=== PATIENT | male | born 1955 | race Two or more races ===

== ENCOUNTER 2020-04-15 20:57 | Emergency (ER) | payer SELFPAY ==
--- NOTE | 2020-04-15 21:25 | ED Physician Documentation ---
PD HPI Fall - Stated complaint Stated Complaint: FALL - History obtained from History obtained from: Patient - History of Present Illness Mechanism of injury: Lost balance Fall distance: Less than 5ft Where injury occurred: Home Timing - onset: Enter time (02:00) Injury(ies) location: Head Pain level now: 0 Quality of pain: Pain (only with palpation) Associated symptoms: No: LOC, AMS Worsens with: Palpation Contributing factors: No: Anticoagulated Recently seen: Not recently seen - Additional information Additional information: fell off of a ladder, only approximately 2 feet off ground, struck head and sustained scalp laceration.Denies LOC. c/o pain localized to the site of injury. He did not come to ED until tonight due to unable to procure ride until now. UTD on tetanus Review of Systems GI: denies: Vomiting Skin: reports: Laceration (s) Musculoskeletal: reports: Reviewed and negative Neurologic: reports: Head injury. denies: Generalized weakness, Focal weakness, Numbness, Headache, LOC PD PAST MEDICAL HISTORY - Past Medical History Past Medical History: No - Present Medications Home Medications: Ambulatory Orders Medication Instructions Recorded Confirmed Cephalexin [Keflex] 500 mg PO Q6H #20 capsule 04/15/20 - Allergies Allergies/Adverse Reactions: Allergies Allergy/AdvReac Type Severity Reaction Status Date / Time No Known Drug Allergies Allergy Verified 04/15/20 21:03 PD ED PE NORMAL - Vitals Vital signs reviewed: Yes - General General: Alert and oriented X 3, No acute distress, Well developed/nourished - HEENT HEENT: PERRL, EOMI PD ED PE EXPANDED - HEENT HEENT Visual: 1 - laceration (5 cm length beveled) Results - Vitals Vitals: Vital Signs - 24 hr 04/15/20 04/15/20 21:03 22:50 Temperature 36.6 C 36.3 C L Heart Rate 90 82 Respiratory 16 16 Rate Blood Pressure 150/70 H 138/69 H O2 Saturation 98 99 Oxygen O2 Source Room air - Rads (name of study) CT head Radiology: Prelim report reviewed, See rad report Procedures - Laceration (location) Scalp Length in cm: 5 Wound type: Linear Neurovascular status: Sensory intact, Motor intact, Vascular intact Anesthesia: Lidocaine 1%, With bicarb Wound Preparation: Chlorhexadine, Irrigated copiously NS, Wound explored, To the base. No: FB identified Skin layer closure: [place] Other: Patient tolerated well, No complications, Neurovascular intact, Tetanus UTD Complexity: Simple PD MEDICAL DECISION MAKING - ED course Complexity details: reviewed results, re-evaluated patient, considered differential, d/w patient ED course: communication with patient performed via slitter service and setter tablet. Departure - Departure Disposition: 01 Home, Self Care Clinical Impression: Laceration Condition: Good Instructions: ED Laceration Scalp Stitch Or Stap Prescriptions: Cephalexin [Keflex] 500 mg PO Q6H #20 capsule Print Language: Latvian Comments: Follow up with your doctor in 7-8 days for removal of the carmella. If you do not have a primary care provider (doctor), you can go to an urgent care-center, a walk-in clinic, or else return to the emergency department. You have been prescribed an antibiotic to help prevent infection Discharge Date/Time: 04/15/20 22:50
[2020-04-15] MEDS ORDERED: BUFFERED LIDOCAINE 10 ML SYRINGE IU STA (22:09)
[2020-04-15] MEDS ORDERED: cephALEXin 250 MG CAPSULE PO STA (22:35)
[2020-04-15] MEDS ORDERED: BACITRACIN ZINC OINT 1 PACKET TOP STA (22:39)
[2020-04-15 22:51] VITALS: BP 138/69
--- NOTE | 2020-04-16 08:18 | CT Report ---
PROCEDURE: HEAD WO INDICATIONS: Head injury TECHNIQUE: Noncontrast 4.5 mm thick angled axial sections acquired from the foramen magnum to the vertex. For r adiation dose reduction, the following was used: automated exposure control, adjustment of mA and/or kV according to patient size. COMPARISON: None. FINDINGS: Image quality: Excellent. CSF spaces: Basal cisterns are patent. No extra-axial fluid collections. Ventricles are normal in size and shape. Brain: No acute intracranial hemorrhage. Global cerebral volume loss with advanced chronic microvascu lar ischemic changes. Focally decreased parenchymal attenuation and decreased tavares-white matter diffe rentiation in the left parietotemporal region, nonspecific. Skull and face: Calvarium and visualized facial bones are intact, without suspicious lesions. Sinuses: Visualized sinuses and mastoids are clear. IMPRESSION: No acute intracranial hemorrhage. Global cerebral volume loss with advanced chronic microvascular ischemic changes. Decreased brain attenuation and subtly decreased oneill-white matter differentiation in the left pariet otemporal region. This is likely related to chronic microvascular ischemic change, although correlati on for new acute neurologic symptoms is requested to help exclude ischemia. Reviewed by: Navneet Diane MD on 04/16/2020 8:16 AM PST Approved by: Navneet Diane MD on 04/16/2020 8:16 AM PST Station ID: [id number]
== END 2020-04-15 22:50 | disposition home or self-care (01) ==
LOC: ED 20:57
DX: S01.01XA Laceration without foreign body of scalp, initial encounter (principal); W11.XXXA Fall on and from ladder, initial encounter; Y92.009 Unspecified place in unspecified non-institutional (private) residence as the place of occurrence of the external cause
CPT/HCPCS: 12002; 70450; 99283; 99284; A9270; 12013

== ENCOUNTER 2020-04-23 07:57 | Emergency (ER) | payer SELFPAY ==
[2020-04-23 08:07] VITALS: BP 132/68
--- NOTE | 2020-04-23 08:10 | ED Physician Documentation ---
History of Present Illness - Stated complaint Stated Complaint: STITCH REMOVAL - Chief complaint Chief Complaint: General - History obtained from History obtained from: Patient - History of Present Illness Timing: How many days ago (10) Pain level max: 0 Pain level now: 0 - Additonal information Additional information: 64-year-old male is here for suture removal. He states he had carmella to his head approximately 10 days ago. No complications. No pain. No bleeding. No vomiting. No fevers. Review of Systems Constitutional: denies: Fever PD PAST MEDICAL HISTORY - Past Surgical History Past Surgical History: No - Present Medications Home Medications: Ambulatory Orders Medication Instructions Recorded Confirmed Cephalexin [Keflex] 500 mg PO Q6H #20 capsule 04/15/20 - Allergies Allergies/Adverse Reactions: Allergies Allergy/AdvReac Type Severity Reaction Status Date / Time No Known Drug Allergies Allergy Verified 04/23/20 08:07 - Social History Does the pt smoke?: No Smoking Status: Never smoker Does the pt drink ETOH?: No Does the pt have substance abuse?: No - Immunizations Immunizations are current?: Yes - POLST Patient has POLST: No PD ED PE NORMAL - Vitals Vital signs reviewed: Yes - General General: Alert and oriented X 3, No acute distress - HEENT HEENT: Other (Well-healed laceration to the scalp. No signs of infection) - Derm Derm: Warm and dry - Neuro Neuro: Alert and oriented X 3 Results - Vitals Vitals: Vital Signs - 24 hr 04/23/20 07:59 Temperature 36.3 C L Heart Rate 74 Respiratory 16 Rate Blood Pressure 132/68 H O2 Saturation 99 Oxygen O2 Source Room air Procedures - Suture/staple Removal (location) Scalp Suture/staple removal: # carmella (6), No complications PD MEDICAL DECISION MAKING - ED course Complexity details: considered differential, d/w patient ED course: All carmella were removed. Tolerated well. Patient counseled regarding signs and symptoms for which I believe and urgent re-evaluation would be necessary. Patient with good understanding of and agreement to plan and is comfortable going home at this time This document was made in part using voice recognition software. While efforts are made to proofread this document, sound alike and grammatical errors may occur. Departure - Departure Disposition: 01 Home, Self Care Clinical Impression: Removal of carmella Condition: Good Instructions: ED Stap Removal No Complication Follow-Up: your,doctor as needed [Other] Print Language: Iranian Comments: Follow-up with your doctor as needed for further care. Return if you worsen.
== END 2020-04-23 08:16 | disposition home or self-care (01) ==
LOC: ED 07:57
DX: S01.01XD Laceration without foreign body of scalp, subsequent encounter (principal); X58.XXXD Exposure to other specified factors, subsequent encounter
CPT/HCPCS: 99281